=== PATIENT | female | born 1990 | race Caucasian/White ===

== ENCOUNTER 2018-10-21 00:02 | Emergency (ER) | payer OTHER ==
[~2018-10-21] VITALS: Ht 165.1 cm; Wt 59.0 kg
[2018-10-21 00:21] VITALS: BP 105/59
== END 2018-10-21 02:15 | disposition left against medical advice (07) ==
LOC: ER 00:02
DX: R19.7 Diarrhea, unspecified (principal); R53.1 Weakness; F41.9 Anxiety disorder, unspecified; Z53.21 Procedure and treatment not carried out due to patient leaving prior to being seen by health care provider